=== PATIENT | male | born 1995 | race Caucasian/White ===

== ENCOUNTER 2016-09-17 21:02 | Emergency (ER) | payer OTHER ==
[~2016-09-17] VITALS: Ht 152.4 cm; Wt 78.0 kg
[2016-09-17 21:15] VITALS: Ht 152.4 cm; Wt 78.0 kg
[2016-09-18] MEDS ORDERED: ONDA4TAB8 PO (18:19)
[2016-09-18] MEDS ORDERED: IBUP-1542 PO (18:19)
[2016-09-18] MEDS ORDERED: HYDR-906 PO (18:22)
== END 2016-09-17 23:20 | disposition left against medical advice (07) ==
LOC: FTE 21:02
DX: Z53.21 Procedure and treatment not carried out due to patient leaving prior to being seen by health care provider (principal)

== ENCOUNTER 2016-09-18 15:46 | Emergency (ER) | payer MEDICAID, OTHER ==
[~2016-09-18] VITALS: Ht 157.5 cm; Wt 78.0 kg
[2016-09-18 15:51] VITALS: Ht 157.5 cm; Wt 78.0 kg
[2016-09-18] MEDS ORDERED: ONDANSETRON 4 MG INJ IV STA (16:11)
[2016-09-18] MEDS ORDERED: KETOROLAC 30 MG INJ IV STA (16:11)
[2016-09-18] MEDS ORDERED: morphine 4 MG/ML VIAL IV STA (16:11)
[2016-09-18] MEDS ORDERED: SOD CHLORIDE 0.9% 1,000 ML IV STA (16:11)
[2016-09-18 16:44] LABS: ADD UMIC YES; BASOPHILS % 0.3 % (0.0-2.0); HEMATOCRIT 45.1 % (42.0-52.0); HEMOGLOBIN 15.6 g/dl (14.0-18.0); LYMPHOCYTES # 1.5 10^3/ul (0.8-2.9); LYMPHOCYTES % 9.4 % (15.0-51.0); MEAN CORPUSCULAR HGB CONC 34.5 g/dl (32.0-37.0); MEAN CORPUSCULAR VOLUME 92.6 fl (82.0-101.0); MEAN PLATELET VOLUME 8.6 fl (7.4-10.4); MONOCYTE # 0.9 10^3/ul (0.3-0.9); MONOCYTES % 5.6 % (0.0-11.0); NEUTROPHIL # 13.2 10^3/ul (1.6-7.5); NEUTROPHILS % 84.7 % (39.0-77.0); PLATELET COUNT 300 10^3/UL (140-440); RED BLOOD COUNT 4.88 10^6/ul (4.70-6.10); RED CELL DISTRIBUTION WIDTH 12.4 % (11.5-14.5); UNCORRECTED WBC 15.5 10^3/ul (4.8-10.8); URINE BILIRUBIN (Dip) 1+ (NEGATIVE); URINE BLOOD (Dip) 3+ (NEGATIVE); URINE GLUCOSE (Dip) NEGATIVE (NEGATIVE); URINE KETONES (Dip) 40 (NEGATIVE); URINE LEUKOCYTE ESTERASE (Dip) NEGATIVE (NEGATIVE); URINE NITRITE (Dip) NEGATIVE (NEGATIVE); URINE TOTAL PROTEIN (Dip) 2+ (NEGATIVE); URINE UROBILINOGEN (Dip) 1.0 E.U./dL (0.1-1.0); WHITE BLOOD COUNT 15.5 10^3/ul (4.8-10.8)
[2016-09-18 16:51] LABS: POTASSIUM 3.9 mmol/L (3.5-5.1)
[2016-09-18 16:53] LABS: BILIRUBIN,INDIRECT 0.7 mg/dl (0-1.1); BILIRUBIN,TOTAL 0.7 mg/dl (0.2-1.3); CREATININE 0.86 mg/dl (0.61-1.24)
[2016-09-18 16:54] LABS: ALBUMIN/GLOBULIN RATIO 1.42; CALCIUM 9.9 mg/dl (8.4-10.2); TOTAL PROTEIN 8.5 g/dl (6.1-8.1)
[2016-09-18 16:56] LABS: CONDITION 1
[2016-09-18 17:01] LABS: URINE COLOR AMBER (YELLOW)
[2016-09-18 17:02] LABS: ICTOTEST NEGATIVE (NEGATIVE); MUCUS,URINE MANY; URINE RBCS >50 /HPF ([, 0])
[2016-09-18 17:03] LABS: BACTERIA,URINE FEW; TRANSITIONAL EPI CELLS,URINE FEW
--- NOTE | 2016-09-18 17:51 | RADRPT ---
PROCEDURE: CT Abdomen and Pelvis without contrast. CLINICAL INDICATION: Left flank pain TECHNIQUE: CT of the abdomen and pelvis was performed on a multi-detector scanner without IV contr ast. Coronal and sagittal images were reformatted from the axial data set. One or more of the foll owing dose reduction techniques were used: automated exposure control, adjustment of the mA and/or kV according to patient size, use of iterative reconstruction technique. CTDI = 7.04 mGy. DLP = 358 .14 mGy-cm. COMPARISON: None. FINDINGS: CT abdomen: The lung bases are clear. The heart size is normal, without pericardial effusion. Liver, gallbladd er, biliary tree, pancreas, spleen, adrenal glands and right kidney are unremarkable. There is mild left hydroureteronephrosis, without evidence of ureteral calculus. 2 mm calculus is present within the urinary bladder (3-133). Findings are consistent with recently passed left ureteral calculus. The stomach is grossly unremarkable. The aorta is of normal caliber. There is no retroperitoneal lymphadenopathy. The lg hepatis reg ion is clear. CT pelvis: No bowel obstruction, free intraperitoneal air or abscess is identified. The appendix is well visua lized and normal. No diverticulosis, diverticulitis or colitis is identified. There is no pelvic m ass, free fluid or lymphadenopathy. The surrounding osseous structures are unremarkable. No osteolytic or osteoblastic lesion is detect ed. IMPRESSION: 1. Findings consistent with a recently passed 2 mm left ureteral calculus, as described above. 2. No mass or lymphadenopathy is identified. RPTAT: PP .Sherif Gonzalez MD, Date Time Electronically viewed and signed by .Sherif Gonzalez MD, MD on 09/18/2016 17:51 .R/
[2016-09-18] MEDS ORDERED: IBUP-1542 PO (18:19)
[2016-09-18] MEDS ORDERED: ONDA4TAB8 PO (18:19)
[2016-09-18] MEDS ORDERED: HYDR-906 PO (18:22)
--- NOTE | 2016-09-18 18:43 | ERD ---
ER Documentation Chief Complaint Date/Time DATE: 09/18/16 TIME: 18:39 Chief Complaint LEFT FLANK PAIN SINCE YESTERDAY HPI This is a 21-year-old male that presents to the ER with left flank pain that started yesterday. Left lung pain is severe and constant. Patient is also stating he is having blood in his urine. He admits to episodes of vomiting. Vomiting is nonbilious nonbloody. He does not have any diarrhea. Patient denies any fever or chills. ROS 12 point review of systems was done, all negative except per HPI.. Medications Home Meds Active Scripts Hydrocodone/Acetaminophen ([place] 5-325 Tablet) 1 Each Tablet, 1 TAB PO Q6H Y for PAIN, #15 TAB Prov:MAYKEL GLYNN 09/18/16 Ondansetron Hcl* (Zofran*) 4 Mg Tablet, 4 MG PO Q6H for NAUSEA AND/OR VOMITING, #30 TAB Prov:MAYKEL GLYNN 09/18/16 Ibuprofen* (Motrin*) 600 Mg Tab, 600 MG PO Q6, #30 TAB Prov:MAYKEL GLYNN 09/18/16 PMhx/Soc Medical and Surgical Hx: pt denies Medical Hx, pt denies Surgical Hx Hx Alcohol Use: No Hx Substance Use: No Hx Tobacco Use: No Physical Exam Vitals Vital Signs Date Time Temp Pulse Resp B/P Pulse Ox O2 Delivery O2 Flow Rate FiO2 09/18/16 15:51 98.1 78 18 149/89 99 Physical Exam GENERAL: patient is in significant distress secondary to pain HEENT: Atraumatic. CHEST: Clear to auscultation bilaterally. There are no rales, wheezes or rhonchi. HEART: Regular rate and rhythm. No murmurs, clicks, rubs or gallops. ABDOMEN: Soft, nontender and nondistended. Good bowel sounds. No rebound or guarding. No gross peritonitis. No gross organomegaly or masses. No Jensen sign or McBurney point tenderness. BACK: +flank tenderness EXTREMITIES: Full range of motion. Grossly neurovascularly intact. NEURO: Alert and oriented. Result Diagram: 09/18/16 1630 09/18/16 1630 Results 24 hrs Laboratory Tests Test 09/18/16 16:30 Alanine Aminotransferase (ALT/SGPT) 25IU/L Albumin 5.0g/dl Albumin/Globulin Ratio 1.42 Alkaline Phosphatase 122IU/L Anion Gap 22 Aspartate Amino Transf (AST/SGOT) 24IU/L Basophils # 0.010^3/ul Basophils % 0.3% Blood Urea Nitrogen 13mg/dl Calcium Level 9.9mg/dl Carbon Dioxide Level 23mmol/L Chloride Level 101mmol/L Creatinine 0.86mg/dl Direct Bilirubin 0.00mg/dl Eosinophils # 0.010^3/ul Eosinophils % 0.0% Globulin 3.50g/dl Glucose Level 97mg/dl Hematocrit 45.1% Hemoglobin 15.6g/dl Indirect Bilirubin 0.7mg/dl Lipase 71U/L Lymphocytes # 1.510^3/ul Lymphocytes % 9.4% Mean Corpuscular Hemoglobin 32.0pg Mean Corpuscular Hemoglobin Concent 34.5g/dl Mean Corpuscular Volume 92.6fl Mean Platelet Volume 8.6fl Monocytes # 0.910^3/ul Monocytes % 5.6% Neutrophils # 13.210^3/ul Neutrophils % 84.7% Nucleated Red Blood Cells # 0.010^3/ul Nucleated Red Blood Cells % 0.0/100WBC Platelet Count 12590^3/UL Potassium Level 3.9mmol/L Red Blood Count 4.8810^6/ul Red Cell Distribution Width 12.4% Sodium Level 142mmol/L Total Bilirubin 0.7mg/dl Total Protein 8.5g/dl Urine Bacteria FEW Urine Bilirubin 1+ Urine Clarity SLIGHTLY CLOUDY Urine Color JOSY Urine Glucose NEGATIVE% Urine Hemoglobin 3+ Urine Ictotest NEGATIVE Urine Ketones 40 Urine Leukocyte Esterase NEGATIVE Urine Microscopic RBC >50/HPF Urine Microscopic WBC 2-5/HPF Urine Mucus MANY Urine Nitrite NEGATIVE Urine Specific [place] >=1.030 Urine Total Protein 2+ Urine Transitional Epithelial Cells FEW Urine Urobilinogen 1.0 E.U./dL Urine pH 6.0 White Blood Count 15.510^3/ul Current Medications Medications (Trade) Dose Ordered Sig/Pete Route PRN Reason Start Time Stop Time Status Last Admin Dose Admin Sodium Chloride (NS) 1,000 ml @ 1,000 mls/hr Q1H STAT IV 09/18/16 16:11 09/18/16 17:10 DC 09/18/16 16:35 Morphine Sulfate (morphine) 6 mg ONCE STAT IV 09/18/16 16:11 1/13/17 16:13 DC 09/18/16 16:35 Ondansetron HCl (Zofran Inj) 4 mg ONCE STAT IV 09/18/16 16:11 09/18/16 16:13 DC 09/18/16 16:34 Ketorolac Tromethamine (Toradol) 30 mg ONCE STAT IV 09/18/16 16:11 09/18/16 16:13 DC 09/18/16 16:34 Procedures/MDM Differential diagnosis includes but is not limited; urinary tract infection, pyelonephritis, hydronephrosis, nephrolithiasis, obstructive stone. This is a 18-year-old male presents to the ER with flank pain. This is likely kidney stone is seen on CT scan. There is no evidence of hydronephrosis. There is no evidence of urinary tract infection. Patient is stable his pain was controlled here in the ER he is afebrile and not well-appearing. He will be sent home with ibuprofen, [place] and Zofran. He is to follow-up with his primary care doctor within 1-2 days return to ER sooner if symptoms worsen. My medical decision making shared with the patient he understands and agrees with plan Departure Diagnosis: Primary Impression: Kidney stone Condition: Stable Patient Instructions: Kidney Stone, Passed Additional Instructions: Llame al doctor MAANA y eliz tristan DAVID PARA DENTRO DE 1-2 REAVES.Dgale a la secretaria que nosotros le instruimos hacer esta david.Avise o llame si preston condicin se empeora antes de la david. Regresa aqui si peor o no mejor. MAYKEL GLYNN Sep 18, 2016 18:42
[2016-09-18 18:49] VITALS: BP 106/56; PULSE 77; RESP 18; TEMP 98
== END 2016-09-18 18:49 | disposition home or self-care (01) ==
LOC: FTE 15:46
DX: N20.0 Calculus of kidney (principal); R11.10 Vomiting, unspecified
CPT/HCPCS: 36415; 74176; 80053; 81001; 83690; 85025; 96374; 96375; J1885; J2270; J2405; J7030; Z7502; 81003